=== PATIENT | male | born 1985 | race Hispanic/Latino ===

== ENCOUNTER 2018-05-26 19:55 | Emergency (ER) | payer OTHER ==
[2018-05-26] MEDS ORDERED: LIDOCAINE 1% W/EPI 1:100,000 MDV 50 ML VIAL ONE (20:17)
[2018-05-26] MEDS ORDERED: CEFAZOLIN/SWI 1gm 1 GM/10 ML SYR ONE (20:54)
[2018-05-26] MEDS ORDERED: NA CHLORIDE 0.9% 500 ML ONE (21:00)
--- NOTE | 2018-05-26 21:28 | EDPHYS ---
Physician Documentation [facility] Name: José Manuel Cabrera Age: 33 yrs Sex: Male : 1985 Arrival Date: 05/26/2018 Time: 19:56 Bed 11 Private MD: ED Physician Bayron Balderas HPI: 05/26 20:47 This 33 yrs old Male presents to ER via EMS with complaints of Laceration To wa Arm. 20:47 The patient has a laceration related to: self-cutting inmate from care home. cut self to wa "relieve stress." denies SI. EMS noted significant blood loss. L antecub lac occurred care home, at an industrial site, and The injury was self inflicted. The laceration(s) is(are) located on the left antecubital area. Onset: The symptoms/episode began/occurred just prior to arrival. Associated signs and symptoms: The patient has no apparent associated signs or symptoms. The patient has experienced similar episodes in the past, several times. The patient has not recently seen a physician. Historical: - Allergies: 20:05 No Known Allergies; fc - Home Meds: 20:05 Prozac 20 mg Oral cap 2 caps nightly [Active]; Tegretol 200 mg Oral tab 1 tab every 12 fc hours [Active]; - PMHx: 20:05 chest pain; GERD; Bipolar disorder; self harm; fc - PSHx: 20:05 laceration repair; fc - Immunization history:: Last tetanus immunization: up to date. - Social history:: Smoking status: Patient/guardian denies using tobacco. - Ebola Screening: : Patient negative for fever greater than or equal to 101.5 degrees Fahrenheit, and additional compatible Ebola Virus Disease symptoms Patient denies exposure to infectious person Patient denies travel to an Ebola-affected area in the 21 days before illness onset. - Family history:: not pertinent. - Hospitalizations: : No recent hospitalization is reported. ROS: 20:49 Constitutional: Negative for fever, chills, and weight loss, Eyes: Negative for injury, wa pain, redness, and discharge, ENT: Negative for injury, pain, and discharge, Neck: Negative for injury, pain, and swelling, Cardiovascular: Negative for chest pain, palpitations, and edema, Respiratory: Negative for shortness of breath, cough, wheezing, and pleuritic chest pain, Abdomen/GI: Negative for abdominal pain, nausea, vomiting, diarrhea, and constipation, Back: Negative for injury and pain, : Negative for injury, bleeding, discharge, and swelling, Neuro: Negative for headache, weakness, numbness, tingling, and seizure, Psych: Negative for depression, anxiety, suicide ideation, homicidal ideation, and hallucinations. 20:49 MS/extremity: Positive for laceration, of the left antecubital area. 20:49 Skin: Positive for laceration(s), of the left antecubital area. 20:49 All other systems are negative. Exam: 20:50 Constitutional: This is a well developed, well nourished patient who is awake, alert, wa and in no acute distress. Head/Face: Normocephalic, atraumatic. Eyes: Pupils equal round and reactive to light, extra-ocular motions intact. Lids and lashes normal. Conjunctiva and sclera are non-icteric and not injected. Cornea within normal limits. Periorbital areas with no swelling, redness, or edema. ENT: Nares patent. No nasal discharge, no septal abnormalities noted. Tympanic membranes are normal and external auditory canals are clear. Oropharynx with no redness, swelling, or masses, exudates, or evidence of obstruction, uvula midline. Mucous membranes moist. Neck: Trachea midline, no thyromegaly or masses palpated, and no cervical lymphadenopathy. Supple, full range of motion without nuchal rigidity, or vertebral point tenderness. No Meningismus. Chest/axilla: Normal chest wall appearance and motion. Nontender with no deformity. No lesions are appreciated. Cardiovascular: Regular rate and rhythm with a normal S1 and S2. No gallops, murmurs, or rubs. Normal PMI, no JVD. No pulse deficits. Respiratory: Lungs have equal breath sounds bilaterally, clear to auscultation and percussion. No rales, rhonchi or wheezes noted. No increased work of breathing, no retractions or nasal flaring. Abdomen/GI: Soft, non-tender, with normal bowel sounds. No distension or tympany. No guarding or rebound. No evidence of tenderness throughout. Back: No spinal tenderness. No costovertebral tenderness. Full range of motion. Neuro: Awake and alert, GCS 15, oriented to person, place, time, and situation. Cranial nerves II-XII grossly intact. Motor strength 5/5 in all extremities. Sensory grossly intact. Cerebellar exam normal. Normal gait. Psych: Awake, alert, with orientation to person, place and time. Behavior, mood, and affect are within normal limits. 20:50 Musculoskeletal/extremity: Extremities: grossly normal except: noted in the left antecubital area: laceration, macerated edges to cut. open, vein lac with brisk bleed. 20:50 Skin: injury, laceration(s), the wound is approximately 2.5 cm(s), deep lac. with open brisk venous bleed. Vital Signs: 19:45 BP 131 / 95; Pulse 96; Resp 18; Temp 97.5(O); Pulse Ox 99% on R/A; Weight 81.65 kg (R); fc Height 5 ft. 9 in. (175.26 cm) (R); Pain 8/10; 21:04 BP 132 / 89; Pulse 90; Resp 16 S; Pulse Ox 98% on R/A; Pain 0/10; bb 22:45 BP 129 / 93; Pulse 86; Resp 16; Pulse Ox 100% ; Pain 8/10; ms 05/27 01:00 BP 120 / 67; Pulse 67; Resp 16 S; Pulse Ox 99% on R/A; bb 02:04 BP 98 / 71; Pulse 75; Resp 16 S; Temp 98(TE); Pulse Ox 96% on R/A; fc 05/26 19:45 Body Mass Index 26.58 (81.65 kg, 175.26 cm) Procedures: 05/26 20:53 figure of eight placed to achieve hemostasis. distal pulses intact. difficult to close wa outside skin due to macerated multiple cuts close to each other.. Laceration: 20:53 Wound Repair of 2.5cm ( 1.0in ) full thickness laceration to left antecubital area. wa Profuse bleeding noted.. venous bleed. Distal neuro/vascular/tendon intact. Anesthesia: Local anesthetic administered with 5 mls of 1% lidocaine w/ Epi. Wound prep: Wound irrigation with saline, Copious irrigation. deep layer and venous tie closed with 1-0 Prolene using interrupted sutures and sterile technique. Dressed with pressure dressing. Patient tolerated well. MDM: 20:01 Patient medically screened. wa 20:52 Differential diagnosis: vascular injury, vein breached. needs emergent control of lac. wa 20:53 Data reviewed: vital signs, nurses notes. wa 20:57 ED course: will transfer for further vascular eval. I worry may open back up and wa develop a hematoma if adequate vein repair not performed. will transfer. 21:24 Response to treatment: the patient's symptoms have markedly improved after treatment. sd Physician consultation: spoke with the vascular doc and gen surg doc at [facility]. pt accepted for further eval.. 05/26 20:31 Order name: Dressing - Wound; Complete Time: 21:03 bb 05/26 20:31 Order name: Gloves, Sterile; Complete Time: 20: bb 05/26 20: Order name: Setup Suture Tray; Complete Time: : bb Administered Medications: 20:31 Drug: Lidocaine-Epinephrine -1%: (1:100,000) 20 ml {Note: by Dr Balderas to affected bb area.} Volume: 20 ml; Route: Infiltration; 21:04 Follow up: Response: No adverse reaction bb 20:47 Drug: Ancef 1 grams Route: IVPB; Site: right forearm; bb 21:03 Follow up: IV Status: Completed infusion; IV Intake: 10ml ; administered per protocol bb 21:03 Drug: NS 0.9% 500 ml Route: IV; Rate: bolus; Site: right forearm; bb 21:36 Follow up: IV Status: Completed infusion; IV Intake: 500ml bb Disposition: 05/26/18 21:27 Transfer ordered to [facility] Diagnosis are Left Ante-cubital fossa laceration, Left arm vein laceration. - Reason for transfer: Higher level of care. - Accepting physician is Dr. David MARIE. - Condition is Stable. - Problem is new. - Symptoms have improved. Signatures: Leesa Burger RN RN fc Ballard, Brenda, RN RN bb Appiah, William, MD MD wa Corrections: (The following items were deleted from the chart) 05/27 02:05 05/26 21:27 05/26/2018 21:27 Transfer ordered to [facility] Diagnosis is Left fc Ante-cubital fossa laceration; Left arm vein laceration. Reason for transfer: Higher level of care. Accepting physician is Dr. David MARIE. Condition is Stable. Problem is new. Symptoms have improved. wa
--- NOTE | 2018-05-26 21:28 | ER ---
Nurse's Notes [facility] Name: José Manuel Cabrera Age: 33 yrs Sex: Male : 1985 Arrival Date: 05/26/2018 Time: 19:56 Bed 11 Private MD: Diagnosis: Left Ante-cubital fossa laceration;Left arm vein laceration Presentation: 05/26 19:45 Method Of Arrival: EMS: [facility] 19:45 Presenting complaint: EMS states: that pt cut his left a/c with razor. Est blood loss fc 250 ml. Pt denies any suicidal or homicidal thoughts. States that he is just very stressed and when he gets this way he cuts. This is how he relieves his stress. Transition of care: from [facility]. Complicating Factors: There are no complicating factors for this patient. Onset of symptoms was May 26, 2018 at 18:30. Risk Assessment: Do you want to hurt yourself or someone else? Patient reports no desire to harm self or others. Initial Sepsis Screen: Does the patient meet any 2 criteria? HR > 90 bpm. Yes Does the patient have a suspected source of infection? No. Patient's initial sepsis screen is negative. Care prior to arrival: Bleeding of injury controlled. Injury dressed. Medication(s) given: Normal saline infusion, at TKO IV initiated. 20 GA, in the right antecubital area. 19:45 Acuity: NATACHA 3 fc Triage Assessment: 20:47 General: Behavior is calm, cooperative. bb Historical: - Allergies: 20:05 No Known Allergies; fc - Home Meds: 20:05 Prozac 20 mg Oral cap 2 caps nightly [Active]; Tegretol 200 mg Oral tab 1 tab every 12 fc hours [Active]; - PMHx: 20:05 chest pain; GERD; Bipolar disorder; self harm; fc - PSHx: 20:05 laceration repair; fc - Immunization history:: Last tetanus immunization: up to date. - Social history:: Smoking status: Patient/guardian denies using tobacco. - Ebola Screening: : Patient negative for fever greater than or equal to 101.5 degrees Fahrenheit, and additional compatible Ebola Virus Disease symptoms Patient denies exposure to infectious person Patient denies travel to an Ebola-affected area in the 21 days before illness onset. - Family history:: not pertinent. - Hospitalizations: : No recent hospitalization is reported. Screenin:45 Abuse screen: Denies threats or abuse. Nutritional screening: No deficits noted. fc Tuberculosis screening: No symptoms or risk factors identified. Fall Risk None identified. Assessment: 19:55 General: Appears in no apparent distress. handcuffed, accompanied by [employer] guards. Pain: bb Complains of pain in left arm. Neuro: Level of Consciousness is awake, alert, obeys commands, Oriented to person, place, time, situation. Cardiovascular: No deficits noted. Respiratory: Respiratory effort is even, unlabored. GI: No deficits noted. No signs and/or symptoms were reported involving the gastrointestinal system. Derm: Skin wound to L AC Skin is dry, Skin is pale, Skin temperature is warm Wound noted left antecubital area Wound is deep with bleeding pressure dressing applied. Musculoskeletal: Circulation, motion, and sensation intact. Injury Description: Laceration is 2.6 to 7.5 cm long, bleeding moderately. 20:45 Reassessment: Patient and/or family updated on plan of care and expected duration. Pain bb level reassessed. Patient is alert, oriented x 3, equal unlabored respirations, skin warm/dry/pink. wound to L AC closed internally with 5 sutures. 21:47 Reassessment: Spoke with Aurelio at [facility]. They will arrange transfer for fc pt. 23:04 Reassessment: Patient and/or family updated on plan of care and expected duration. Pain bb level reassessed. Patient is alert, oriented x 3, equal unlabored respirations, skin warm/dry/pink. bandage to left AC clean, dry and intact, awaiting transfer to [facility] pt remains shackled and in care on [employer] guards. 03 00:00 Reassessment: No changes from previously documented assessment. Patient and/or family bb updated on plan of care and expected duration. Pain level reassessed. Patient is alert, oriented x 3, equal unlabored respirations, skin warm/dry/pink. pt cuffed and shackled in custody of [employer] guards awaiting transfer. 02:02 Reassessment: [facility] at bedside for transfer of pt to [facility]. fc Pt is A\T\O x 4, resp unlabored, IV site intact with no erythema or edema, bandage to left AC clean, dry and intact. [employer] guards accompanied pt who remains hand-cuffed and shackled. Vital Signs: 05/26 19:45 BP 131 / 95; Pulse 96; Resp 18; Temp 97.5(O); Pulse Ox 99% on R/A; Weight 81.65 kg (R); fc Height 5 ft. 9 in. (175.26 cm) (R); Pain 8/10; 21:04 BP 132 / 89; Pulse 90; Resp 16 S; Pulse Ox 98% on R/A; Pain 0/10; bb 22:45 BP 129 / 93; Pulse 86; Resp 16; Pulse Ox 100% ; Pain 8/10; ms 05/27 01:00 BP 120 / 67; Pulse 67; Resp 16 S; Pulse Ox 99% on R/A; bb 02:04 BP 98 / 71; Pulse 75; Resp 16 S; Temp 98(TE); Pulse Ox 96% on R/A; fc 05/26 19:45 Body Mass Index 26.58 (81.65 kg, 175.26 cm) ED Course: 05/26 19:45 Arm band placed on Patient placed in an exam room, on a stretcher. 19:45 Patient has correct armband on for positive identification. Bed in low position. Call fc light in reach. care home guards at bedside x 2. 19:55 Maintain EMS IV. Dressing intact. Good blood return noted. Site clean \T\ dry. Gauge \T\ bb site: 20 g R FA. 19:56 Patient arrived in ED. fc 20:01 Bayron Balderas MD is Attending Physician. ny 20:02 Triage completed. fc 20:30 Erin Manzanares, MIKE is Primary Nurse. bb 20:44 Assist provider with laceration repair on left antecubital area that was between 2.6 to bb 7.5 cm using sutures. Set up tray. Performed by Bayron Balderas MD Patient tolerated well. 20:46 Patient transferred, IV remains in place. bb 21:05 Dressings: pressure dressing applied to left AC covered with dennis wrap. bb Administered Medications: 20:31 Drug: Lidocaine-Epinephrine -1%: (1:100,000) 20 ml {Note: by Dr Balderas to affected bb area.} Volume: 20 ml; Route: Infiltration; 21:04 Follow up: Response: No adverse reaction bb 20:47 Drug: Ancef 1 grams Route: IVPB; Site: right forearm; bb 21:03 Follow up: IV Status: Completed infusion; IV Intake: 10ml ; administered per protocol bb 21:03 Drug: NS 0.9% 500 ml Route: IV; Rate: bolus; Site: right forearm; bb 21:36 Follow up: IV Status: Completed infusion; IV Intake: 500ml bb Intake: 21:03 IV: 10ml; Total: 10ml. bb 21:36 IV: 500ml; Total: 510ml. bb Outcome: 20:45 Instructed on the need for transfer. bb 21:27 ER care complete, transfer ordered by . wa 21:52 Transferred by ground EMS to [facility], Transfer form fc completed. Note: report given to Yue MCKEON 21:54 Condition: stable fc 05/27 02:05 Patient left the ED. fc Signatures: Leesa Burger RN RN fc Ballard, Brenda, RN RN bb Solis, Maria dc Bayron Balderas MD MD ny Corrections: (The following items were deleted from the chart) 05/26 21:47 19:45 Transition of care: patient was not received from another setting of care. fc fc
== END 2018-05-27 02:05 | disposition short-term general hospital (02) ==
LOC: ER 19:55
PROC: 0JQH0ZZ Repair Left Lower Arm Subcutaneous Tissue and Fascia, Open Approach (ICD-10-PCS; principal; 2018-05-27)
DX: S45.912A Laceration of unspecified blood vessel at shoulder and upper arm level, left arm, initial encounter (principal); X78.9XXA Intentional self-harm by unspecified sharp object, initial encounter; Y93.9 Activity, unspecified; Y92.149 Unspecified place in prison as the place of occurrence of the external cause; F31.9 Bipolar disorder, unspecified
CPT/HCPCS: 96361; 96365; 99285; J0690